=== PATIENT | female | born 1945 | race Two or more races ===

== ENCOUNTER → 2020-05-21 | Outpatient (CLI) | payer OTHER | END | disposition home or self-care (01) | LOC: OFIC 805 09:52 | PROVIDERS: ATTEND Otolaryngology Otology & Neurotology | DX: H81.03 Meniere's disease, bilateral (principal); H91.8X3 Other specified hearing loss, bilateral ==

== ENCOUNTER 2020-08-10 08:32 | Outpatient (CLI) | payer OTHER | END 2020-08-10 08:53 | disposition home or self-care (01) | LOC: OFIC 805 08:32 | PROVIDERS: ATTEND Otolaryngology Otology & Neurotology | DX: H81.03 Meniere's disease, bilateral (principal); H91.8X3 Other specified hearing loss, bilateral ==

== ENCOUNTER 2020-10-11 13:33 | Outpatient (CLI) | payer OTHER | END 2020-10-11 14:47 | disposition home or self-care (01) | LOC: OFIC 805 13:33 | PROVIDERS: ATTEND Otolaryngology Otology & Neurotology | DX: H81.03 Meniere's disease, bilateral (principal); H91.93 Unspecified hearing loss, bilateral ==

== ENCOUNTER 2024-12-04 05:25 | Day surgery (SDC) | payer OTHER ==
[2024-11-30 07:56] VITALS: BP 150/70
[2024-11-30 08:04] LABS: BASO % 0.7 % (0.1-1.2); EOS # 0.05 (0.04-0.54); EOS % 1.1 % (0.7-7.0); LYMPH # 1.34 (1.18-3.74); LYMPH % 30.5 % (19.3-53.1); MEAN PLATELET VOLUME 10.10 fl (9.4-12.4); MONO # 0.23 (0.24-0.82); MONO % 5.2 % (4.7-12.5); NEUT # 2.73 (1.56-6.13); NEUT % 62.3 % (34.0-71.1); RED CELL DISTRIBUTION WIDTH 13.2 % (11.6-14.4); URINE APPEARANCE Clear; URINE BILIRRUBIN Negative (NEGATIVE); URINE BLOOD Small; URINE COLOR Yellow; URINE GLUCOSE Negative (NEGATIVE); URINE KETONE Negative (NEGATIVE); URINE LEUKOCYTE Negative; URINE NITRATE Negative; URINE PROTEIN Negative (NEGATIVE); URINE UROBILINOGEN 0.2 E.U./dl
[2024-11-30 08:05] LABS: URINE BACTERIA 5.9 uL (0.0-1933); URINE EPITHELIAL CELLS 4.4 uL (0.0-38.8); URINE RBC 16.8 uL (0.0-20.8); URINE WBC 5.2 uL (0.0-23.2)
[2024-11-30 08:13] LABS: URINE CAST 0.00 uL (0.0-1.40)
[2024-11-30 08:37] LABS: INR < 0.93
[2024-11-30 09:10] LABS: BUN CREA RATIO 23.0 (7.0-25.0); CREATININE SERUM 0.86 mg/dL (0.55-1.02); GFR 63.98; GLUCOSE FASTING 93.0 mg/dL (65-100); OSMOLALITY SERUM 289.0 MOSM/KG (275-295)
[~2024-12-04] VITALS: Ht 149.9 cm; Wt 54.9 kg
[~2024-12-04 05:25] MED LIST: ARNUITY ELLIPT50 MCG IH; CITALOPRAM HBR10 MG PO; COZAAR50 MG PO; CRESTOR40 MG PO; FOLIC ACID0.8 M1; GABAPENTIN300 MG; LEVO-T88 MCG PO; LINZESS290 MCG PO; MELOXICAM15 MG PO; MONTELUKAST SODI4 M1; PENTOXIFYLLINE400 MG PO; PEPCID AC20 MG; PRESERVISION A1 EAC1 PO; PROAIR RESPICL90 MCG IH; PROLIA60 MG/1 ML SQ; PROTONIX40 MG PO; UCERIS9 MG; XARELTO10 MG; ZETIA10 MG PO; ZOLOFT25 MG PO; [UNRECOGNIZED DRUG - OTHER]
[2024-12-04] MEDS ORDERED: EPINEPHRINE HCL/PF 1 MG/ML AMPUL IR ONE (08:00)
[2024-12-04] MEDS ORDERED: POVIDONE-IODINE 118 ML BOTT TOP ONE (08:00)
[2024-12-04] MEDS ORDERED: CIPROFLOXACIN HCL 0.175 MG/DR DROPS OTIC ONE (08:00)
[2024-12-04] MEDS ORDERED: LIDOCAINE HCL 1%/EPINEPHRINE 20ML VIAL IJ ONE (08:00)
[2024-12-04] MEDS ORDERED: CEFAZOLIN SODIUM 1,000 MG VIAL IV ONE (08:00)
[2024-12-04] MEDS ORDERED: CIPROFLOXACIN2.5 ML OTIC (08:40)
[2024-12-04] MEDS ORDERED: CEPHALEXIN500 M1 PO (08:40)
[2024-12-04] MEDS ORDERED: MORPHINE SULFATE 4 MG/ML VIAL IV ONE ×2 (09:30→10:00)
== END 2024-12-04 13:20 | disposition home or self-care (01) ==
LOC: CIR.AMB 05:25
PROVIDERS: ATTEND Otolaryngology Otology & Neurotology
DX: H72.02 Central perforation of tympanic membrane, left ear (principal); H90.72 Mixed conductive and sensorineural hearing loss, unilateral, left ear, with unrestricted hearing on the contralateral side; Z88.2 Allergy status to sulfonamides; Z91.018 Allergy to other foods